=== PATIENT | female | born 1975 | race Caucasian/White ===

== ENCOUNTER → 2017-08-21 | Outpatient (CLI) | payer OTHER | LOC: BMCIMAGING 11:53 | PROVIDERS: ATTEND Podiatrist Foot & Ankle Surgery | DX: M25.471 Effusion, right ankle (principal); M79.671 Pain in right foot ==

== ENCOUNTER → 2018-04-04 | Outpatient (CLI) | payer OTHER | LOC: BMCIMAGING 10:44 | PROVIDERS: ATTEND Family Medicine | DX: R07.89 Other chest pain (principal) ==